=== PATIENT | male | born 1990 | race Caucasian/White ===

== ENCOUNTER → 2017-05-08 | Outpatient (CLI) | payer OTHER ==
--- NOTE | 2017-05-08 13:53 | DIAGNOSTIC IMAGING REPORT ---
(CHEST) THORAX WITHOUT CLINICAL HISTORY: 26 years-old Male presenting with R93.8 Abnormal chest x-ray opacity on cx. TECHNIQUE: Multidetector CT imaging of the chest was performed without the use of intravenous contrast. IV contrast: None. A dose lowering technique was used consistent with the principles of ALARA (as low as reasonably achievable). COMPARISON: None. CT DOSE (mGy.cm): The estimated cumulative dose is 516.78 mGycm. FINDINGS: [employer] topogram: Unremarkable. On soft tissue windows, bilateral gynecomastia. Normal thyroid and thoracic inlet. No axillary, supraclavicular, hilar, or mediastinal lymphadenopathy. Normal aorta. Normal heart size. No pericardial or pleural effusion. Upper abdomen normal. On lung windows, 4 mm triangular solid fissural nodule in the left lower lobe, likely unencapsulated lymphoid tissue. No other focal infiltrate or nodule. Airways patent. On bone windows, normal osseous structures. IMPRESSION: 1. No acute intrathoracic pathology. Electronically signed by: Del Green M.D. 05/08/2017 1:52 PM Dictated Date/Time: 05/08/2017 1:48 PM
== END | disposition home or self-care (01) ==
LOC: C.CTS 13:26
PROVIDERS: ATTEND Internal Medicine
DX: R93.8 Abnormal findings on diagnostic imaging of other specified body structures (principal)

== ENCOUNTER → 2017-05-09 | Outpatient (CLI) | payer OTHER ==
[2017-05-09 13:28] LABS: ESTIMATED AVERAGE GLUCOSE 103 mg/dl; HA1C FLAG Normal (Normal)
== END | disposition home or self-care (01) ==
LOC: C.LABMFLN 09:46
PROVIDERS: ATTEND Internal Medicine
DX: R73.09 Other abnormal glucose (principal)